=== PATIENT | male | born 1970 | race Caucasian/White ===

== ENCOUNTER 2020-01-19 12:32 | Inpatient (IN) | payer OTHER ==
[~2020-01-19] VITALS: Ht 177.8 cm; Wt 131.0 kg
[~2020-01-19 12:32] MED LIST: DOCU-150 PO; HYDR25SU18 RC; MULT-445 PO
[2020-01-19] MEDS ORDERED: IV NORMAL SALINE 1000ML BAG 1,000 ML IV ONE (16:00)
[2020-01-19] MEDS ORDERED: fentaNYL PF VIAL 100 MCG/2 ML VIAL IVP ONE (16:00)
[2020-01-19] MEDS ORDERED: ONDANSETRON PF 4 MG/2 ML VIAL. IVP ONE (16:00)
--- NOTE | 2020-01-19 16:04 | PHYS DOC ---
Past Medical History Past Medical History: No Pertinent History (FRANCIA ALBRIGHT FIRE ALARM MECHANIC) Past Surgical History: No Surgical History Additional Past Surgical Histo: L foot (FRANCIA ALBRIGHT FIRE ALARM MECHANIC) Smoking Status: Never Smoker Alcohol Use: Heavy Drug Use: None (FRANCIA ALBRIGHT FIRE ALARM MECHANIC) General Adult EDM: Chief Complaint: FEVER HPI: HPI: Patient is a 49 year old male who presents with patient stated he started in with symptoms this past Friday and was cover test on Friday. He states he found out on Friday that he was covered positive. He states that the first 2 days he had some nausea and vomiting but now he has no appetite, fever, body aches, shortness of breath with cough and chest pain with cough. He currently rates his overall pain at an 8 out of 10. He states he has been taking Tylenol and ibuprofen [id number] for pain and fever. He states that he has cold chills. He states that he cannot sleep because he is afraid if he falls asleep that he will stop breathing. Patient has a history of hypertension from denies any other history. He states he takes lisinopril. He states that when he coughs hard he coughs up white mucus. He is currently having no chest pain. Patient denies smoking, abdominal pain, diarrhea, dizziness, headache, vision changes, focal weakness, numbness or tingling, syncope. (FRANCIA ALBRIGHT FIRE ALARM MECHANIC) Review of Systems: Review of Systems: Constitutional: fever or chills. [] Eyes: Denies change in visual acuity. [] HENT: Denies nasal congestion or sore throat. [] Respiratory: cough or shortness of breath. [] Cardiovascular: chest pain or denies edema. [] GI: Denies abdominal pain. + nausea, +vomiting, denies bloody stools or diarrhea. [] : Denies dysuria. [] Musculoskeletal: Generalized body aches. denies back pain or joint pain. [] Integument: Denies rash. [] Neurologic: Denies headache, focal weakness or sensory changes. [] Endocrine: Denies polyuria or polydipsia. [] Lymphatic: Denies swollen glands. [] Psychiatric: Denies depression or anxiety. [] (FRANCIA ALBRIGHT FIRE ALARM MECHANIC) Heart Score: HEART Score for Chest Pain: HEART Score for Chest Pain Response (Comments) Value History Slighlty/Non-Suspicious 0 ECG Normal 0 Age >45 - < 65 1 Risk Factors 1 or 2 Risk Factors 1 Troponin < Normal Limit 0 Total 2 Risk Factors: Risk Factors: DM, Current or recent (<one month) smoker, HTN, HLP, family history of CAD, obesity. Risk Scores: Score 0 - 3: 2.5% MACE over next 6 weeks - Discharge Home Score 4 - 6: 20.3% MACE over next 6 weeks - Admit for Clinical Observation Score 7 - 10: 72.7% MACE over next 6 weeks - Early Invasive Strategies (FRANCIA ALBRIGHT APRN) Allergies: Allergies: Allergies Coded Allergies Type Severity Reaction Last Updated Verified No Known Drug Allergies 04/02/16 No (FRANCIA ALBRIGHT APRN) Physical Exam: PE: Constitutional: Well developed, well nourished, no acute distress, non-toxic appearance. [] HENT: Normocephalic, atraumatic, bilateral external ears normal, oropharynx moist, no oral exudates, nose normal. [] Eyes: PERRLA, EOMI, conjunctiva normal, no discharge. [] Neck: Normal range of motion, no tenderness, supple, no stridor. [] Cardiovascular:Heart rate regular rhythm, no murmur [] Lungs & Thorax: Bilateral breath sounds clear to auscultation [] Abdomen: Bowel sounds normal, soft, no tenderness, no masses, no pulsatile masses. [] Skin: Warm, dry, no erythema, no rash. [] Back: No tenderness, no CVA tenderness. [] Extremities: No tenderness, no cyanosis, no clubbing, ROM intact, no edema. [] Neurologic: Alert and oriented X 3, normal motor function, normal sensory function, no focal deficits noted. [] Psychologic: Affect normal, judgement normal, mood normal. Normal physical exam [] (FRANCIA ALBRIGHT APRN) EKG: EK read by Dr. Hutchinson is normal sinus rhythm and no STEMI [] (FRANCIA ALBRIGHT APRN) Radiology/Procedures: Radiology/Procedures: [] Impression: [facility] [address] [place] [address] IMAGING REPORT Signed PATIENT: ABDELRAHMAN TORREZ ACCOUNT: [id number] : 1970 LOCATION: ER AGE: 49 SEX: M EXAM STATUS: REG ER ORD. PHYSICIAN: FRANCIA ALBRIGHT APRN REASON: soa, +covid PROCEDURE: PORTABLE CHEST 1V Single view of the chest. 01/19/2020 3:48 PM Indication: Reason: soa, +covid / Spl. Instructions: / History: Comparison: None Findings: Lung volumes are low with mild bibasilar opacities possibly represent atelectasis or infiltrate. No pneumothorax or effusion is identified. Heart size is felt to be top normal given portable technique. No acute osseous changes are seen. IMPRESSION: Low lung volumes with mild bibasilar atelectasis or infiltrate Electronically signed by: Xavier Crow MD (01/19/2020 4:49 PM) [id number] DICTATED and SIGNED BY: XAVIER CROW MD DATE: 01/19/201648 (FRANCIA ALBRIGHT APRN) Course & Med Decision Making: Course & Med Decision Making Pertinent Labs and Imaging studies reviewed. (See chart for details) COVID-19 CRITERIA: The patient was evaluated during the global COVID-19 tammie [place], and that diagnosis was suspected/considered upon their initial presentation. Their evaluation, treatment and testing was consistent with current guidelines for patients who present with complaints or symptoms that may be related to COVID-19. See HPI. Extremity edema. Skin pink warm and dry. Ambulatory with a steady gait. Clear to auscultation all lobes. Speaks in full clear sentences. Currently afebrile. Patient is 92% on room air and there is a good waveform. Chest x-ray shows bibasilar infiltrates. Due to the patient's low oxygenation status patient will be admitted to the hospital. I have spoken to Dr. Garcia for admission. I will consult pulmonary and infectious disease. [] (FRANCIA ALBRIGHT APRN) Toribio Disclaimer: Toribio Disclaimer: This electronic medical record was generated, in whole or in part, using a voice recognition dictation system. (FRANCIA ALBRIGHT APRN) COVID-19 Patient Risks: Age 65 or older: No Sign of co-morbidity: Yes Exp to person + for COVID: Yes Exp to PUI: No Travel from affected area: No Lower respiratory symptoms: Yes Fever: Yes Comments: covid + (FRANCIA ALBRIGHT APRN) PPE Use: Full PPE with N95 mask or PAPR: Yes (FRANCIA ALBRIGHT APRN) Departure Departure Impression: Primary Impression: COVID-19 Additional Impression: Hypoxia Disposition: ADMITTED INPATIENT Admitting Physician: CATARINA (FRANCIA ALBRIGHT APRN) Condition: STABLE Referrals: UNKNOWN PCP NAME (PCP) Justicifation of Admission Dx: Justifications for Admission: Justification of Admission Dx: Yes Comments: hypoxia (FRANCIA ALBRIGHT APRN) Attending Signature Attending Signature I have reviewed the PA/REGISTRY NP's note and plan of care. I was available for consult ation as needed at all times during the patient's visit in the emergency department. I agree with the clinical impression, plan and disposition. (ABDELRAHMAN HUTCHINSON DO) FRANCIA ALBRIGHT APRN Jan 19, 2020 16:04 ABDELRAHMAN HUTCHINSON DO Jan 21, 2020 09:23
--- NOTE | 2020-01-19 16:20 | EKG ---
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
[2020-01-19 16:40] LABS: BASO % 0 % (0-3); EOS % 0 % (0-3); HEMATOCRIT 41.4 % (39.0-53.0); HEMOGLOBIN 14.7 g/dL (13.0-17.5); LYMPH # 0.7 x10^3/uL (1.0-4.8); LYMPH % 15 % (24-48); MEAN CORPUSCULAR HEMOGLOBIN 33 pg (25-35); MEAN CORPUSCULAR HGB CONC 35 g/dL (31-37); MEAN CORPUSCULAR VOLUME 92 fL (79-100); MONO # 0.2 x10^3/uL (0.0-1.1); MONO % 4 % (0-9); NEUT # 3.8 x10^3/uL (1.8-7.7); NEUT % 81 % (31-73); PLATELET COUNT 187 x10^3/uL (140-400); RED CELL DISTRIBUTION WIDTH 13.4 % (11.5-14.5); WHITE BLOOD COUNT 4.8 x10^3/uL (4.0-11.0)
[2020-01-19] MEDS ORDERED: ACETAMINOPHEN 500 MG TABLET PO ONE (16:45)
[2020-01-19 16:50] LABS: CALCIUM 8.3 mg/dL (8.5-10.1); CREATININE 1.3 mg/dL (0.7-1.3); GFR 58.4; POTASSIUM 3.8 mmol/L (3.5-5.1)
--- NOTE | 2020-01-19 16:52 | RAD ---
Single view of the chest. 01/19/2020 3:48 PM Indication: Reason: soa, +covid / Spl. Instructions: / History: Comparison: None Findings: Lung volumes are low with mild bibasilar opacities possibly represent atelectasis or infiltrate. No pneumothorax or effusion is identified. Heart size is felt to be top normal given portable technique. No acute osseous changes are seen. IMPRESSION: Low lung volumes with mild bibasilar atelectasis or infiltrate Electronically signed by: Xavier Darling MD (01/19/2020 4:49 PM) [id number]
[2020-01-19 16:56] LABS: ALBUMIN 3.3 g/dL (3.4-5.0); ALBUMIN/GLOBULIN RATIO 0.8 (1.0-1.7); TOTAL BILIRUBIN 0.4 mg/dL (0.2-1.0); TOTAL PROTEIN 7.5 g/dL (6.4-8.2)
[2020-01-19 17:11] LABS: BILIRUBIN,URINE SMALL (NEG); CLARITY,URINE CLEAR; COLOR,URINE YELLOW; NITRITE,URINE NEGATIVE (NEG); PH,URINE 5.5 (<5.0-8.0); PROTEIN,URINE 100 mg/dL (NEG-TRACE); UROBILINOGEN,URINE 0.2 mg/dL (0.2 mg/dL)
[2020-01-19 17:27] LABS: GRANULAR CASTS,URINE MODERATE /HPF; HYALINE CASTS, URINE MODERATE /HPF
[2020-01-19 17:28] LABS: BACTERIA,URINE 0 /HPF (0-FEW)
[2020-01-19 17:29] LABS: RBC,URINE RARE /HPF (0-2)
[2020-01-19] MEDS ORDERED: DEXAMETHASONE SOD PHOS 20 MG/5 ML VIAL. IV ONE (18:00)
[2020-01-19] MEDS ORDERED: AZITHRMYCN 500MG IVPB FOR OMNI 250 ML IV ONE (18:00)
[2020-01-19] MEDS ORDERED: fentaNYL PF VIAL 100 MCG/2 ML VIAL IV PRN (18:15)
[2020-01-19] MEDS ORDERED: ONDANSETRON PF 4 MG/2 ML VIAL. IV PRN (18:15)
[2020-01-19 19:07] LABS: BASE EXCESS COOX -1 mmol/L (-3-3); HCO3 COOX 22 mmol/L (21-28); METHEMOGLOBIN 0.4 % (0.0-1.9); OXYHEMOGLOBIN 92.8 %; PCO2 COOX 32 mmHg (35-46); PO2 COOX 65 mmHg (75-108); SAT O2 COOX 93 % (92-99)
[2020-01-19 21:13] VITALS: BP 123/69
[2020-01-19] MEDS: ACETAMINOPHEN 325 MG TABLET. PO PRN (22:53)
[2020-01-20] VITALS (9 sets, daily range): BP systolic 115–186; BP diastolic 62–81
[2020-01-20] MEDS ORDERED: LISI10TA2 PO (00:44)
--- NOTE | 2020-01-20 08:45 | PDOC1 ---
History and Physical Date of Service: DOS: DATE: 01/20/20 TIME: 08:35 Chief Complaint: Chief Complain: Dyspnea History of Present Illness: HPI: 80-[id number]-wmcc-old male with past medical history of hypertension who presents with combination of loss of appetite, nausea vomiting, fever, malaise, shortness of breath and chest pain. Overall pain is 8 out of 10. Symptoms began this past Friday and he had a COVID test on Friday and on Friday he was found out that he was COVID positive. Patient states that he was unable to fall asleep because he was afraid he would stop breathing. This is what prompted him to come to the ED at the time. Denies abdominal pain, diarrhea, dysuria, syncope, hematemesis or smoking. Past Medical/Surgical History: PMH/PSH: Past Medical History: Hypertension Past Surgical History: L foot Allergies: Allergies: Coded Allergies: No Known Drug Allergies (Unverified , 04/02/16) Family History: Family History: Reviewed and none reported Social History: Social History: Smoking Status: Never Smoker Alcohol Use: Heavy Drug Use: None Current Medications: Current Medications Current Medications Sodium Chloride 1,000 ml @ 1,000 mls/hr 1X ONCE IV Last administered on 01/19/20at 16:23; Start 01/19/20 at 16:00; Stop 01/19/20 at 16:59; Status DC Fentanyl Citrate (Fentanyl 2ml Vial) 50 mcg 1X ONCE IVP Last administered on 01/19/20at 16:23; Start 01/19/20 at 16:00; Stop 01/19/20 at 16:01; Status DC Ondansetron HCl (Zofran) 4 mg 1X ONCE IVP Last administered on 01/19/20at 16:23; Start 01/19/20 at 16:00; Stop 01/19/20 at 16:01; Status DC Acetaminophen (Tylenol) 1,000 mg 1X ONCE PO Last administered on 01/19/20at 16:47; Start 01/19/20 at 16:45; Stop 01/19/20 at 16:46; Status DC Azithromycin 250 ml @ 250 mls/hr 1X ONCE IV Last administered on 01/19/20at 18:58; Start 01/19/20 at 18:00; Stop 01/19/20 at 18:59; Status DC Dexamethasone Sodium Phosphate (Decadron) 10 mg 1X ONCE IV Last administered on 01/19/20at 18:59; Start 01/19/20 at 18:00; Stop 01/19/20 at 18:01; Status DC Ondansetron HCl (Zofran) 4 mg PRN Q8HRS PRN IV NAUSEA/VOMITING; Start 01/19/20 at 18:15; Stop 01/20/20 at 18:14 Fentanyl Citrate (Fentanyl 2ml Vial) 50 mcg PRN Q1HR PRN IV PAIN; Start 01/19/20 at 18:15; Stop 01/20/20 at 18:14 Acetaminophen (Tylenol) 650 mg PRN Q4HRS PRN PO FEVER > 100.3'F Last administered on 01/19/20at 22:53; Start 01/19/20 at 18:15; Stop 01/20/20 at 18:14 Active Scripts Active Reported Lisinopril 10 Mg Tablet 1 Tab PO DAILY ROS: Review of Systems Review of System REVIEW OF SYSTEMS: GENERAL: Denies weakness SKIN: No bruising, hair changes or rashes. EYES: No blurred, double or loss of vision. NOSE AND THROAT: No history of nosebleeds, hoarseness or sore throat. HEART: No history of palpitations, chest pain or shortness of breath on exertion. LUNGS: Denies cough, hemoptysis, wheezing or shortness of breath. GASTROINTESTINAL: Denies changes in appetite, nausea, vomiting, diarrhea or constipation. GENITOURINARY: No history of frequency, urgency, hesitancy or nocturia. NEUROLOGIC: Denies history of numbness, tingling, or tremor. PSYCHIATRIC: No history of panic, anxiety or depression. ENDOCRINE: No history of heat or cold intolerance, polyuria or polydipsia. EXTREMITIES: Denies joint pain, pain on walking or stiffness. Physical Exam: Vital Signs: Vital Signs Date Time Temp Pulse Resp B/P (MAP) Pulse Ox O2 Delivery O2 Flow Rate FiO2 01/20/20 03:24 98.5 57 16 115/62 (79) 94 Nasal Cannula 2.0 98.5 Physcial Exam: GEN: No apparent distress. Alert and oriented HEENT: Normal cephalic, atraumatic, external auditory canals are patent EYES: Extraocular muscles are intact, pupil are equally round and reactive to light and accommodation MUSCULOSKELETAL: Well developed , well nourished, good range of motion ENDOCRINE: No thyromegaly was palpated LYMPHATICS: No cervical chain or axillary nodes were noted HEMATOPOIETIC: No bruising NECK: Supple, no JVD, no thyromegaly was noted LUNGS: Clear to auscultation in all lung kumar without rhonchi or wheezing HEART: RRR, S!, S2 present. Peripheral pulses intact, no obvious murmurs noted ABDOMEN: Soft, nontender. Positive bowel sounds, no organomegaly, normal bowel sounds EXTREMITIES: Without clubbing, cyanosis, or edema. Pedal pulses intact. Negative Homans sign NEUROLOGIC: Normal speech and tone. A&O x 3, moves all extremities, no obvious focal deficits PSYCHIATRIC: Normal affect, normal mood. Stable SKIN: No ulcerations or rashes, good skin turgor, no jaundice VASCULAR: Good capillary refill, neurovascular bundle appears to be intact Labs: Labs: Laboratory Tests Test 01/19/20 15:48 01/19/20 15:58 01/19/20 16:22 01/19/20 16:27 Sodium Level 134 mmol/L (136-145) Potassium Level 3.8 mmol/L (3.5-5.1) Chloride Level 96 mmol/L (98-107) Carbon Dioxide Level 28 mmol/L (21-32) Anion Gap 10 (6-14) Blood Urea Nitrogen 17 mg/dL (8-26) Creatinine 1.3 mg/dL (0.7-1.3) Estimated GFR (Cockcroft-Gault) 58.4 BUN/Creatinine Ratio 13 (6-20) Glucose Level 107 mg/dL (70-99) Calcium Level 8.3 mg/dL (8.5-10.1) Total Bilirubin 0.4 mg/dL (0.2-1.0) Aspartate Amino Transf (AST/SGOT) 36 U/L (15-37) Alanine Aminotransferase (ALT/SGPT) 30 U/L (16-63) Alkaline Phosphatase 59 U/L (46-116) Troponin I Quantitative < 0.017 ng/mL (0.000-0.055) Total Protein 7.5 g/dL (6.4-8.2) Albumin 3.3 g/dL (3.4-5.0) Albumin/Globulin Ratio 0.8 (1.0-1.7) XR-Fde-J-Type Natriuretic Peptide 50 pg/mL (0-124) Lactic Acid Level 1.0 mmol/L (0.4-2.0) White Blood Count 4.8 x10^3/uL (4.0-11.0) Red Blood Count 4.50 x10^6/uL (4.30-5.70) Hemoglobin 14.7 g/dL (13.0-17.5) Hematocrit 41.4 % (39.0-53.0) Mean Corpuscular Volume 92 fL (79-100) Mean Corpuscular Hemoglobin 33 pg (25-35) Mean Corpuscular Hemoglobin Concent 35 g/dL (31-37) Red Cell Distribution Width 13.4 % (11.5-14.5) Platelet Count 187 x10^3/uL (140-400) Neutrophils (%) (Auto) 81 % (31-73) Lymphocytes (%) (Auto) 15 % (24-48) Monocytes (%) (Auto) 4 % (0-9) Eosinophils (%) (Auto) 0 % (0-3) Basophils (%) (Auto) 0 % (0-3) Neutrophils # (Auto) 3.8 x10^3/uL (1.8-7.7) Lymphocytes # (Auto) 0.7 x10^3/uL (1.0-4.8) Monocytes # (Auto) 0.2 x10^3/uL (0.0-1.1) Eosinophils # (Auto) 0.0 x10^3/uL (0.0-0.7) Basophils # (Auto) 0.0 x10^3/uL (0.0-0.2) Test 01/19/20 17:00 01/19/20 17:30 Urine Collection Type Unknown Urine Color Yellow Urine Clarity Clear Urine pH 5.5 (<5.0-8.0) Urine Specific [place] 1.020 (1.000-1.030) Urine Protein 100 mg/dL (NEG-TRACE) Urine Glucose (UA) Negative mg/dL (NEG) Urine Ketones (Stick) Trace mg/dL (NEG) Urine Blood Negative (NEG) Urine Nitrite Negative (NEG) Urine Bilirubin Small (NEG) Urine Urobilinogen Dipstick 0.2 mg/dL (0.2 mg/dL) Urine Leukocyte Esterase Negative (NEG) Urine RBC Rare /HPF (0-2) Urine WBC 11-20 /HPF (0-4) Urine Squamous Epithelial Cells None /LPF Urine Bacteria 0 /HPF (0-FEW) Urine Cellular Casts Mod /HPF Urine Hyaline Casts Moderate /HPF Urine Granular Casts Moderate /HPF Urine Mucus Marked /LPF O2 Saturation 93 % (92-99) Arterial Blood pH 7.46 (7.35-7.45) Arterial Blood pCO2 at Patient Temp 32 mmHg (35-46) Arterial Blood pO2 at Patient Temp 65 mmHg (75-108) Arterial Blood HCO3 22 mmol/L (21-28) Arterial Blood Base Excess -1 mmol/L (-3-3) Oxyhemoglobin 92.8 % Methemoglobin 0.4 % (0.0-1.9) Carbon Monoxide, Quantitative 0.2 % (0.0-1.9) FiO2 21 Laboratory Tests Test 01/19/20 15:48 01/19/20 15:58 01/19/20 16:22 01/19/20 16:27 Sodium Level 134 mmol/L (136-145) Potassium Level 3.8 mmol/L (3.5-5.1) Chloride Level 96 mmol/L (98-107) Carbon Dioxide Level 28 mmol/L (21-32) Anion Gap 10 (6-14) Blood Urea Nitrogen 17 mg/dL (8-26) Creatinine 1.3 mg/dL (0.7-1.3) Estimated GFR (Cockcroft-Gault) 58.4 BUN/Creatinine Ratio 13 (6-20) Glucose Level 107 mg/dL (70-99) Calcium Level 8.3 mg/dL (8.5-10.1) Total Bilirubin 0.4 mg/dL (0.2-1.0) Aspartate Amino Transf (AST/SGOT) 36 U/L (15-37) Alanine Aminotransferase (ALT/SGPT) 30 U/L (16-63) Alkaline Phosphatase 59 U/L (46-116) Troponin I Quantitative < 0.017 ng/mL (0.000-0.055) Total Protein 7.5 g/dL (6.4-8.2) Albumin 3.3 g/dL (3.4-5.0) Albumin/Globulin Ratio 0.8 (1.0-1.7) HC-Wch-L-Type Natriuretic Peptide 50 pg/mL (0-124) Lactic Acid Level 1.0 mmol/L (0.4-2.0) White Blood Count 4.8 x10^3/uL (4.0-11.0) Red Blood Count 4.50 x10^6/uL (4.30-5.70) Hemoglobin 14.7 g/dL (13.0-17.5) Hematocrit 41.4 % (39.0-53.0) Mean Corpuscular Volume 92 fL (79-100) Mean Corpuscular Hemoglobin 33 pg (25-35) Mean Corpuscular Hemoglobin Concent 35 g/dL (31-37) Red Cell Distribution Width 13.4 % (11.5-14.5) Platelet Count 187 x10^3/uL (140-400) Neutrophils (%) (Auto) 81 % (31-73) Lymphocytes (%) (Auto) 15 % (24-48) Monocytes (%) (Auto) 4 % (0-9) Eosinophils (%) (Auto) 0 % (0-3) Basophils (%) (Auto) 0 % (0-3) Neutrophils # (Auto) 3.8 x10^3/uL (1.8-7.7) Lymphocytes # (Auto) 0.7 x10^3/uL (1.0-4.8) Monocytes # (Auto) 0.2 x10^3/uL (0.0-1.1) Eosinophils # (Auto) 0.0 x10^3/uL (0.0-0.7) Basophils # (Auto) 0.0 x10^3/uL (0.0-0.2) Test 01/19/20 17:00 01/19/20 17:30 Urine Collection Type Unknown Urine Color Yellow Urine Clarity Clear Urine pH 5.5 (<5.0-8.0) Urine Specific [place] 1.020 (1.000-1.030) Urine Protein 100 mg/dL (NEG-TRACE) Urine Glucose (UA) Negative mg/dL (NEG) Urine Ketones (Stick) Trace mg/dL (NEG) Urine Blood Negative (NEG) Urine Nitrite Negative (NEG) Urine Bilirubin Small (NEG) Urine Urobilinogen Dipstick 0.2 mg/dL (0.2 mg/dL) Urine Leukocyte Esterase Negative (NEG) Urine RBC Rare /HPF (0-2) Urine WBC 11-20 /HPF (0-4) Urine Squamous Epithelial Cells None /LPF Urine Bacteria 0 /HPF (0-FEW) Urine Cellular Casts Mod /HPF Urine Hyaline Casts Moderate /HPF Urine Granular Casts Moderate /HPF Urine Mucus Marked /LPF O2 Saturation 93 % (92-99) Arterial Blood pH 7.46 (7.35-7.45) Arterial Blood pCO2 at Patient Temp 32 mmHg (35-46) Arterial Blood pO2 at Patient Temp 65 mmHg (75-108) Arterial Blood HCO3 22 mmol/L (21-28) Arterial Blood Base Excess -1 mmol/L (-3-3) Oxyhemoglobin 92.8 % Methemoglobin 0.4 % (0.0-1.9) Carbon Monoxide, Quantitative 0.2 % (0.0-1.9) FiO2 21 Images: Images CXR IMPRESSION: Low lung volumes with mild bibasilar atelectasis or infiltrate Assessment/Plan Assessment/Plan Acute hypoxic respiratory failure due to COVID infection Admit to medicine Appreciate pulmonology recommendations Appreciate infectious disease recommendations Start IV steroids Start convalescent plasma and Remdesivir Continue current oxygen supplementation to maintain saturations greater than 92% Start high dose DVT treatment High dose Lovenox for DVT prophylaxis ADA diet Full code Discussed with RN and SW Disposition inpatient Surrogate decision maker is self LIZETH MART MD Jan 20, 2020 08:45
[2020-01-20] MEDS: ASCORBIC ACID 500 MG TABLET PO SCH ×3 (09:03→23:08)
--- NOTE | 2020-01-20 09:55 | PDOC ---
Infectious Disease Note Vital Sign Vital Signs Vital Signs Date Time Temp Pulse Resp B/P (MAP) Pulse Ox O2 Delivery O2 Flow Rate FiO2 01/20/20 03:24 98.5 57 16 115/62 (79) 94 Nasal Cannula 2.0 98.5 Labs Lab Laboratory Tests Test 01/19/20 15:48 01/19/20 15:58 01/19/20 16:22 01/19/20 16:27 Sodium Level 134 mmol/L (136-145) Potassium Level 3.8 mmol/L (3.5-5.1) Chloride Level 96 mmol/L (98-107) Carbon Dioxide Level 28 mmol/L (21-32) Anion Gap 10 (6-14) Blood Urea Nitrogen 17 mg/dL (8-26) Creatinine 1.3 mg/dL (0.7-1.3) Estimated GFR (Cockcroft-Gault) 58.4 BUN/Creatinine Ratio 13 (6-20) Glucose Level 107 mg/dL (70-99) Calcium Level 8.3 mg/dL (8.5-10.1) Total Bilirubin 0.4 mg/dL (0.2-1.0) Aspartate Amino Transf (AST/SGOT) 36 U/L (15-37) Alanine Aminotransferase (ALT/SGPT) 30 U/L (16-63) Alkaline Phosphatase 59 U/L (46-116) Troponin I Quantitative < 0.017 ng/mL (0.000-0.055) Total Protein 7.5 g/dL (6.4-8.2) Albumin 3.3 g/dL (3.4-5.0) Albumin/Globulin Ratio 0.8 (1.0-1.7) FN-Stj-D-Type Natriuretic Peptide 50 pg/mL (0-124) Lactic Acid Level 1.0 mmol/L (0.4-2.0) White Blood Count 4.8 x10^3/uL (4.0-11.0) Red Blood Count 4.50 x10^6/uL (4.30-5.70) Hemoglobin 14.7 g/dL (13.0-17.5) Hematocrit 41.4 % (39.0-53.0) Mean Corpuscular Volume 92 fL (79-100) Mean Corpuscular Hemoglobin 33 pg (25-35) Mean Corpuscular Hemoglobin Concent 35 g/dL (31-37) Red Cell Distribution Width 13.4 % (11.5-14.5) Platelet Count 187 x10^3/uL (140-400) Neutrophils (%) (Auto) 81 % (31-73) Lymphocytes (%) (Auto) 15 % (24-48) Monocytes (%) (Auto) 4 % (0-9) Eosinophils (%) (Auto) 0 % (0-3) Basophils (%) (Auto) 0 % (0-3) Neutrophils # (Auto) 3.8 x10^3/uL (1.8-7.7) Lymphocytes # (Auto) 0.7 x10^3/uL (1.0-4.8) Monocytes # (Auto) 0.2 x10^3/uL (0.0-1.1) Eosinophils # (Auto) 0.0 x10^3/uL (0.0-0.7) Basophils # (Auto) 0.0 x10^3/uL (0.0-0.2) Test 01/19/20 17:00 01/19/20 17:30 Urine Collection Type Unknown Urine Color Yellow Urine Clarity Clear Urine pH 5.5 (<5.0-8.0) Urine Specific [place] 1.020 (1.000-1.030) Urine Protein 100 mg/dL (NEG-TRACE) Urine Glucose (UA) Negative mg/dL (NEG) Urine Ketones (Stick) Trace mg/dL (NEG) Urine Blood Negative (NEG) Urine Nitrite Negative (NEG) Urine Bilirubin Small (NEG) Urine Urobilinogen Dipstick 0.2 mg/dL (0.2 mg/dL) Urine Leukocyte Esterase Negative (NEG) Urine RBC Rare /HPF (0-2) Urine WBC 11-20 /HPF (0-4) Urine Squamous Epithelial Cells None /LPF Urine Bacteria 0 /HPF (0-FEW) Urine Cellular Casts Mod /HPF Urine Hyaline Casts Moderate /HPF Urine Granular Casts Moderate /HPF Urine Mucus Marked /LPF O2 Saturation 93 % (92-99) Arterial Blood pH 7.46 (7.35-7.45) Arterial Blood pCO2 at Patient Temp 32 mmHg (35-46) Arterial Blood pO2 at Patient Temp 65 mmHg (75-108) Arterial Blood HCO3 22 mmol/L (21-28) Arterial Blood Base Excess -1 mmol/L (-3-3) Oxyhemoglobin 92.8 % Methemoglobin 0.4 % (0.0-1.9) Carbon Monoxide, Quantitative 0.2 % (0.0-1.9) FiO2 21 Objective Assessment pt seen, consult dictated Plan Plan of Care / GERMAN CHOWDARY MD Jan 20, 2020 09:55
[2020-01-20] MEDS: LISINOPRIL 10 MG TABLET PO SCH (10:07)
[2020-01-20] MEDS: LABETALOL 20 MG/4 ML DISP.SYRIN. IVP PRN (10:08)
[2020-01-20] MEDS: ACETAMINOPHEN 325 MG TABLET. PO PRN ×2 (10:09→17:40)
--- NOTE | 2020-01-20 11:16 | CONS ---
DATE OF CONSULTATION: 01/20/2020 REQUESTING PHYSICIAN: Dr. Araya. REASON FOR CONSULTATION: Hypoxia and COVID positive and fever. HISTORY OF PRESENT ILLNESS: This is a 49-year-old gentleman with history of hypertension, who came in. In fact, he had an outpatient urgent care on . He had a COVID test done, which was positive. The patient started having more shortness of breath and more fever, hence he came in. The patient denies any nausea, vomiting, diarrhea. Denies any chest pain. He does have shortness of breath and fever. PAST MEDICAL HISTORY: Positive for hypertension. SOCIAL HISTORY: Negative for smoking, but he does use alcohol, no drug use. ALLERGIES: No known drug allergies. CURRENT MEDICATIONS: The patient is already started on steroids. He received azithromycin one dose. REVIEW OF SYSTEMS: As per HPI, all other systems reviewed are negative. PHYSICAL EXAMINATION: GENERAL: Alert, oriented gentleman, not in distress. VITAL SIGNS: Stable with T-max 102.8. HEENT: NAD. NECK: Supple, no JVP, no lymphadenopathy. LUNGS: Clear. HEART: S1, S2 regular. ABDOMEN: Benign. EXTREMITIES: No edema, cyanosis. SKIN: Unremarkable. NEUROLOGIC: The patient is alert, awake and appropriate. No focal neurologic deficit. LABORATORY DATA: White count is normal. Low lymphocyte count. BUN and creatinine are normal. Lactic acid was normal. Urinalysis unremarkable. His chest x-ray showed bibasilar infiltrate. IMPRESSION: 1. COVID-19 positive. 2. Hypoxemia, the patient is on 2 liters oxygen. 3. Pulmonary infiltrate. 4. Fever. 5. Hypertension. RECOMMENDATIONS: Continue steroids. I did discuss with him about the convalescent plasma and remdesivir. The patient is in agreement. We will initiate that and continue to follow. Thank you very much, Dr. Araya, for giving me the opportunity to participate in this patient's care. GERMAN CHOWDARY MD DR: RUBY/bjorn JOB#: [id number] / [id number]
--- NOTE | 2020-01-20 11:57 | CONS ---
DATE OF CONSULTATION: PULMONARY CONSULTATION ATTENDING PHYSICIAN: Jose Araya MD REASON FOR CONSULTATION: Hypoxia, COVID pneumonia. HISTORY OF PRESENT ILLNESS: The patient is a 49-year-old male who is obese with a BMI of 41. He has no history of tobacco use. He was recently tested positive COVID. He started to have some shortness of breath. As a result, he has been in the hospital. He has a cough. No chest pain, but he does have a fever. No nausea, vomiting, no diarrhea. His chest x-ray showed faint patchy interstitial infiltrates. PAST MEDICAL HISTORY: Significant for hypertension and obesity with a BMI of 41. SOCIAL HISTORY: Negative for smoking. PAST SURGICAL HISTORY: None. ALLERGIES: None. MEDICATIONS: Reviewed as listed on MRAD. REVIEW OF SYSTEMS: Ten-point system obtained. Pertinent positives discussed in my history of present illness, otherwise noncontributory. All systems that were negative were reviewed as well. PHYSICAL EXAMINATION: VITAL SIGNS: Reviewed. T-max of 101.4, blood pressure on the high side, pulse ox 90% on 2 liters. GENERAL: Visual exam done due to COVID-19 pandemia. No obvious respiratory distress. He is obese. EXTREMITIES: With no rash. LABORATORY DATA: Reviewed. White cell count 4.8, hemoglobin 14.7, platelets are 187. BUN and creatinine 17 and 1.3. ABGs: pH 7.46, pCO2 of 32 and a pO2 of 65 on room air. IMPRESSION: 1. Acute hypoxic respiratory failure secondary to COVID-19 pneumonia. 2. Abnormal chest x-ray with patchy infiltrates consistent with COVID pneumonia. 3. Underlying morbid obesity. 4. No significant tobacco history. RECOMMENDATIONS: 1. Continue present oxygen. Keep saturation 92% and above. 2. IV steroids. 3. We will initiate plasma as well as remdesivir per Infectious Disease. 4. Monitor the clinical course of treatment. 5. High dose DVT prophylaxis. Discussed with RN. CHINTAN MCGRATH MD DR: RAVIND/bjorn JOB#: [id number] / [id number]
[2020-01-20] MEDS ORDERED: NON FORMULARY ITEM 1 EA in IV NORMAL SALINE 250ML 250 ML IV ONE (13:00)
[2020-01-20] MEDS: ENOXAPARIN 40 MG/0.4 ML SYRINGE. SQ SCH ×2 (13:21→23:09)
[2020-01-20] MEDS: THIAMINE INJ 100 MG in IV DEXTROSE 5% 50 ML IV SCH ×2 (15:06→23:11)
[2020-01-20] MEDS: methylPREDNISolone SOD SUCC PF 40 MG/ML VIAL. IV SCH ×2 (15:06→23:08)
--- NOTE | 2020-01-20 17:15 | NUR ---
SW following. Spoke with RN and reviewed chart. Pt on 2l 02. Pt COVID positive. SW attempted to call into pt's room to coordinate care, no answer. SW to continue following.
[2020-01-21 03:36] VITALS: BP 128/72
[2020-01-21] MEDS ORDERED: PHENOL ORAL SPRAY 177ML BOTTLE. PO PRN (05:30)
[2020-01-21] MEDS ORDERED: BENZONATATE 100 MG CAPSULE. PO PRN (05:30)
[2020-01-21] MEDS: BENZOCAINE/MENTHOL LOZENGE. PO PRN ×2 (05:39→08:26)
[2020-01-21] MEDS: THIAMINE INJ 100 MG in IV DEXTROSE 5% 50 ML IV SCH ×3 (05:39→21:48)
[2020-01-21] MEDS: methylPREDNISolone SOD SUCC PF 40 MG/ML VIAL. IV SCH ×3 (05:39→21:47)
[2020-01-21 07:00] VITALS: BP 154/73
[2020-01-21] MEDS: ASCORBIC ACID 500 MG TABLET PO SCH ×3 (08:26→21:47)
[2020-01-21] MEDS: LISINOPRIL 10 MG TABLET PO SCH (08:27)
[2020-01-21] MEDS: ENOXAPARIN 40 MG/0.4 ML SYRINGE. SQ SCH ×2 (08:27→21:48)
[2020-01-21] MEDS: NON FORMULARY ITEM 1 EA in IV NORMAL SALINE 250ML 250 ML IV SCH (08:50)
--- NOTE | 2020-01-21 09:02 | PDOC ---
PULMONARY PROGRESS NOTES DATE: 01/21/20 TIME: 09:02 Subjective PT. resting on 2 liters N/C Repost SOB at rest and with ambulation and non-productive cough Low grade fever overnight S/P convalescent plasma and remdesivir 01/20/20 Vitals Vital Signs Date Time Temp Pulse Resp B/P (MAP) Pulse Ox O2 Delivery O2 Flow Rate FiO2 01/21/20 08:27 77 154/73 01/21/20 07:00 99.3 18 99 Nasal Cannula 2.0 99.3 Comments PT. seen during covid-19 pandemic visual exam preformed RRR N/C No distress No edema No rash Labs Laboratory Tests Test 01/19/20 15:48 01/19/20 15:58 01/19/20 16:22 01/19/20 16:27 Sodium Level 134 mmol/L (136-145) Potassium Level 3.8 mmol/L (3.5-5.1) Chloride Level 96 mmol/L (98-107) Carbon Dioxide Level 28 mmol/L (21-32) Anion Gap 10 (6-14) Blood Urea Nitrogen 17 mg/dL (8-26) Creatinine 1.3 mg/dL (0.7-1.3) Estimated GFR (Cockcroft-Gault) 58.4 BUN/Creatinine Ratio 13 (6-20) Glucose Level 107 mg/dL (70-99) Calcium Level 8.3 mg/dL (8.5-10.1) Total Bilirubin 0.4 mg/dL (0.2-1.0) Aspartate Amino Transf (AST/SGOT) 36 U/L (15-37) Alanine Aminotransferase (ALT/SGPT) 30 U/L (16-63) Alkaline Phosphatase 59 U/L (46-116) Troponin I Quantitative < 0.017 ng/mL (0.000-0.055) Total Protein 7.5 g/dL (6.4-8.2) Albumin 3.3 g/dL (3.4-5.0) Albumin/Globulin Ratio 0.8 (1.0-1.7) TR-Saz-R-Type Natriuretic Peptide 50 pg/mL (0-124) Lactic Acid Level 1.0 mmol/L (0.4-2.0) White Blood Count 4.8 x10^3/uL (4.0-11.0) Red Blood Count 4.50 x10^6/uL (4.30-5.70) Hemoglobin 14.7 g/dL (13.0-17.5) Hematocrit 41.4 % (39.0-53.0) Mean Corpuscular Volume 92 fL (79-100) Mean Corpuscular Hemoglobin 33 pg (25-35) Mean Corpuscular Hemoglobin Concent 35 g/dL (31-37) Red Cell Distribution Width 13.4 % (11.5-14.5) Platelet Count 187 x10^3/uL (140-400) Neutrophils (%) (Auto) 81 % (31-73) Lymphocytes (%) (Auto) 15 % (24-48) Monocytes (%) (Auto) 4 % (0-9) Eosinophils (%) (Auto) 0 % (0-3) Basophils (%) (Auto) 0 % (0-3) Neutrophils # (Auto) 3.8 x10^3/uL (1.8-7.7) Lymphocytes # (Auto) 0.7 x10^3/uL (1.0-4.8) Monocytes # (Auto) 0.2 x10^3/uL (0.0-1.1) Eosinophils # (Auto) 0.0 x10^3/uL (0.0-0.7) Basophils # (Auto) 0.0 x10^3/uL (0.0-0.2) Test 01/19/20 17:00 01/19/20 17:30 Urine Collection Type Unknown Urine Color Yellow Urine Clarity Clear Urine pH 5.5 (<5.0-8.0) Urine Specific [place] 1.020 (1.000-1.030) Urine Protein 100 mg/dL (NEG-TRACE) Urine Glucose (UA) Negative mg/dL (NEG) Urine Ketones (Stick) Trace mg/dL (NEG) Urine Blood Negative (NEG) Urine Nitrite Negative (NEG) Urine Bilirubin Small (NEG) Urine Urobilinogen Dipstick 0.2 mg/dL (0.2 mg/dL) Urine Leukocyte Esterase Negative (NEG) Urine RBC Rare /HPF (0-2) Urine WBC 11-20 /HPF (0-4) Urine Squamous Epithelial Cells None /LPF Urine Bacteria 0 /HPF (0-FEW) Urine Cellular Casts Mod /HPF Urine Hyaline Casts Moderate /HPF Urine Granular Casts Moderate /HPF Urine Mucus Marked /LPF O2 Saturation 93 % (92-99) Arterial Blood pH 7.46 (7.35-7.45) Arterial Blood pCO2 at Patient Temp 32 mmHg (35-46) Arterial Blood pO2 at Patient Temp 65 mmHg (75-108) Arterial Blood HCO3 22 mmol/L (21-28) Arterial Blood Base Excess -1 mmol/L (-3-3) Oxyhemoglobin 92.8 % Methemoglobin 0.4 % (0.0-1.9) Carbon Monoxide, Quantitative 0.2 % (0.0-1.9) FiO2 21 Medications Active Scripts Medications Dose Route/Sig Max Daily Dose Days Date Category Lisinopril 10 Mg Tablet 1 Tab PO DAILY 01/20/20 Reported Comments CXR IMPRESSION: Low lung volumes with mild bibasilar atelectasis or infiltrate Impression . IMPRESSION: 1. Acute hypoxic respiratory failure secondary to COVID-19 pneumonia. 2. Abnormal chest x-ray with patchy infiltrates consistent with COVID pneumonia. 3. Underlying morbid obesity. 4. No significant tobacco history. Plan . RECOMMENDATIONS: 1. Continue present oxygen. Keep saturation 92% and above. 2. Continue IV steroids, will need ten day course 3. ABX per ID 4. S/P convalescent plasma and remdesivir 01/20/20 5. High dose DVT prophylaxis. 6. Tylenol for fevers 7. Monitor clinical course D/W HUMBERTO OAKES MD Jan 21, 2020 09:02
[2020-01-21] MEDS ORDERED: ACETAMINOPHEN 325 MG TABLET. PO PRN (10:00)
[2020-01-21 10:16] LABS: BASO % 0 % (0-3); EOS % 0 % (0-3); HEMATOCRIT 39.1 % (39.0-53.0); HEMOGLOBIN 13.7 g/dL (13.0-17.5); LYMPH # 0.7 x10^3/uL (1.0-4.8); LYMPH % 12 % (24-48); MEAN CORPUSCULAR HEMOGLOBIN 32 pg (25-35); MEAN CORPUSCULAR HGB CONC 35 g/dL (31-37); MEAN CORPUSCULAR VOLUME 92 fL (79-100); MONO # 0.2 x10^3/uL (0.0-1.1); MONO % 4 % (0-9); NEUT # 5.2 x10^3/uL (1.8-7.7); NEUT % 84 % (31-73); PLATELET COUNT 278 x10^3/uL (140-400); RED BLOOD COUNT 4.26 x10^6/uL (4.30-5.70); RED CELL DISTRIBUTION WIDTH 13.9 % (11.5-14.5); WHITE BLOOD COUNT 6.2 x10^3/uL (4.0-11.0)
[2020-01-21 10:27] LABS: CALCIUM 8.1 mg/dL (8.5-10.1); GFR 79.1
[2020-01-21 10:40] LABS: POTASSIUM 3.8 mmol/L (3.5-5.1)
[2020-01-21 11:00] VITALS: BP 191/91
[2020-01-21] MEDS: LABETALOL 20 MG/4 ML DISP.SYRIN. IVP PRN (11:24)
--- NOTE | 2020-01-21 11:58 | PDOC ---
Infectious Disease Note Subjective Subjective pt is feeling better ROS ROS no n/v/d/sob Vital Sign Vital Signs Vital Signs Date Time Temp Pulse Resp B/P (MAP) Pulse Ox O2 Delivery O2 Flow Rate FiO2 01/21/20 11:24 67 191/91 01/21/20 08:00 Nasal Cannula 2.0 01/21/20 07:00 99.3 18 99 99.3 Physical Exam PHYSICAL EXAM GENERAL: Alert, oriented gentleman, not in distress. VITAL SIGNS: Stable HEENT: NAD. NECK: Supple, no JVP, no lymphadenopathy. LUNGS: Clear. HEART: S1, S2 regular. ABDOMEN: Benign. EXTREMITIES: No edema, cyanosis. SKIN: Unremarkable. NEUROLOGIC: The patient is alert, awake and appropriate. No focal neurologic deficit. Labs Lab Laboratory Tests Test 01/21/20 09:55 White Blood Count 6.2 x10^3/uL (4.0-11.0) Red Blood Count 4.26 x10^6/uL (4.30-5.70) Hemoglobin 13.7 g/dL (13.0-17.5) Hematocrit 39.1 % (39.0-53.0) Mean Corpuscular Volume 92 fL (79-100) Mean Corpuscular Hemoglobin 32 pg (25-35) Mean Corpuscular Hemoglobin Concent 35 g/dL (31-37) Red Cell Distribution Width 13.9 % (11.5-14.5) Platelet Count 278 x10^3/uL (140-400) Neutrophils (%) (Auto) 84 % (31-73) Lymphocytes (%) (Auto) 12 % (24-48) Monocytes (%) (Auto) 4 % (0-9) Eosinophils (%) (Auto) 0 % (0-3) Basophils (%) (Auto) 0 % (0-3) Neutrophils # (Auto) 5.2 x10^3/uL (1.8-7.7) Lymphocytes # (Auto) 0.7 x10^3/uL (1.0-4.8) Monocytes # (Auto) 0.2 x10^3/uL (0.0-1.1) Eosinophils # (Auto) 0.0 x10^3/uL (0.0-0.7) Basophils # (Auto) 0.0 x10^3/uL (0.0-0.2) Sodium Level 136 mmol/L (136-145) Potassium Level 3.8 mmol/L (3.5-5.1) Chloride Level 99 mmol/L (98-107) Carbon Dioxide Level 30 mmol/L (21-32) Anion Gap 7 (6-14) Blood Urea Nitrogen 16 mg/dL (8-26) Creatinine 1.0 mg/dL (0.7-1.3) Estimated GFR (Cockcroft-Gault) 79.1 Glucose Level 176 mg/dL (70-99) Calcium Level 8.1 mg/dL (8.5-10.1) Micro Microbiology 01/19/20 Blood Culture - Preliminary, Resulted NO GROWTH AFTER 1 DAY 01/19/20 Urine Culture - Final, Complete Objective Assessment IMPRESSION: 1. COVID-19 positive. 2. Hypoxemia, the patient is on 2 liters oxygen. 3. Pulmonary infiltrate. 4. Fever. 5. Hypertension. Plan Plan of Care cont Remdesivir steroids C plasma given supportive care GERMAN CHOWDARY MD Jan 21, 2020 11:58
--- NOTE | 2020-01-21 12:40 | PDOC ---
[employer] PROGRESS NOTE Date of Service DOS: DATE: 01/21/20 TIME: 12:39 Chief Complaint Chief Complaint Acute hypoxic respiratory failure due to COVID infection Admit to medicine Appreciate pulmonology recommendations Appreciate infectious disease recommendations Start IV steroids Continue IV convalescent plasma Continue IV Remdesivir day 2 out of 4 Continue current oxygen supplementation to maintain saturations greater than 92% Start high dose DVT treatment High dose Lovenox for DVT prophylaxis ADA diet Full code Discussed with RN and SW Disposition inpatient Surrogate decision maker is self History of Present Illness History of Present Illness 76-dtt[age]egk-old male with past medical history of hypertension who presents with combination of loss of appetite, nausea vomiting, fever, malaise, shortness of breath and chest pain. Overall pain is 8 out of 10. Symptoms began this past Friday and he had a COVID test on Friday and on Friday he was found out that he was COVID positive. Patient states that he was unable to fall asleep because he was afraid he would stop breathing. This is what prompted him to come to the ED at the time. Denies abdominal pain, diarrhea, dysuria, syncope, hematemesis or smoking. 01/21/2020 No acute events overnight. Patient seen and examined bedside. Patient has some headache after given IV Remdesivir. Headache improved after Tylenol given. Patient's chart, labs, images were reviewed and discussed with RN Vitals/I&O Vitals/I&O: Vital Signs Date Time Temp Pulse Resp B/P (MAP) Pulse Ox O2 Delivery O2 Flow Rate FiO2 01/21/20 11:24 67 191/91 01/21/20 08:00 Nasal Cannula 2.0 01/21/20 07:00 99.3 18 99 99.3 I & O 01/20/20 01/20/20 01/21/20 15:00 23:00 07:00 Intake Total 540 ml 932 ml 300 ml Balance 540 ml 932 ml 300 ml Physical Exam Physical Exam: GENERAL: Alert, oriented gentleman, not in distress. VITAL SIGNS: Stable HEENT: NAD. NECK: Supple, no JVP, no lymphadenopathy. LUNGS: Clear. HEART: S1, S2 regular. ABDOMEN: Benign. EXTREMITIES: No edema, cyanosis. SKIN: Unremarkable. NEUROLOGIC: The patient is alert, awake and appropriate. No focal neurologic deficit. Labs Labs: Laboratory Tests Test 01/21/20 09:55 White Blood Count 6.2 x10^3/uL (4.0-11.0) Red Blood Count 4.26 x10^6/uL (4.30-5.70) Hemoglobin 13.7 g/dL (13.0-17.5) Hematocrit 39.1 % (39.0-53.0) Mean Corpuscular Volume 92 fL (79-100) Mean Corpuscular Hemoglobin 32 pg (25-35) Mean Corpuscular Hemoglobin Concent 35 g/dL (31-37) Red Cell Distribution Width 13.9 % (11.5-14.5) Platelet Count 278 x10^3/uL (140-400) Neutrophils (%) (Auto) 84 % (31-73) Lymphocytes (%) (Auto) 12 % (24-48) Monocytes (%) (Auto) 4 % (0-9) Eosinophils (%) (Auto) 0 % (0-3) Basophils (%) (Auto) 0 % (0-3) Neutrophils # (Auto) 5.2 x10^3/uL (1.8-7.7) Lymphocytes # (Auto) 0.7 x10^3/uL (1.0-4.8) Monocytes # (Auto) 0.2 x10^3/uL (0.0-1.1) Eosinophils # (Auto) 0.0 x10^3/uL (0.0-0.7) Basophils # (Auto) 0.0 x10^3/uL (0.0-0.2) Sodium Level 136 mmol/L (136-145) Potassium Level 3.8 mmol/L (3.5-5.1) Chloride Level 99 mmol/L (98-107) Carbon Dioxide Level 30 mmol/L (21-32) Anion Gap 7 (6-14) Blood Urea Nitrogen 16 mg/dL (8-26) Creatinine 1.0 mg/dL (0.7-1.3) Estimated GFR (Cockcroft-Gault) 79.1 Glucose Level 176 mg/dL (70-99) Calcium Level 8.1 mg/dL (8.5-10.1) Assessment and Plan Assessmemt and Plan Problems Medical Problems: (1) COVID-19 Status: Acute (2) Hypoxia Status: Acute Comment Review of Relevant I have reviewed the following items sai (where applicable) has been applied. Medications: Current Medications Medications (Trade) Dose Ordered Sig/Madia Route PRN Reason Start Time Stop Time Status Last Admin Dose Admin Methylprednisolone Sodium Succinate (SOLU-Medrol 40MG VIAL) 40 mg Q8HRS IV 01/20/20 14:00 01/21/20 05:39 Thiamine HCl 100 mg/Dextrose 51 ml @ 102 mls/hr Q8HRS IV 01/20/20 14:00 01/21/20 05:39 Non-Formulary Medication 1 ea/ Sodium Chloride 250 ml @ 500 mls/hr 1X ONCE IV 01/20/20 13:00 01/20/20 13:29 DC 01/20/20 13:21 Non-Formulary Medication 1 ea/ Sodium Chloride 250 ml @ 500 mls/hr DAILY IV 01/21/20 09:00 01/24/20 09:29 01/21/20 08:50 Enoxaparin Sodium (Lovenox 40mg Syringe) 40 mg Q12HR SQ 01/20/20 13:00 01/21/20 08:27 Throat Lozenges (Cepacol Sore Throat Lozenge) 1 jak PRN Q2HRS PRN PO SORE THROAT, 1ST CHOICE 01/21/20 05:30 01/21/20 08:26 Benzonatate (Tessalon Perle) 200 mg PRN Q8HRS PRN PO COUGH 01/21/20 05:30 01/21/20 05:39 Phenol (Chloraseptic) 1 spray PRN Q2HR PRN PO SORE THROAT, 2ND CHOICE 01/21/20 05:30 01/21/20 05:39 Acetaminophen (Tylenol) 650 mg PRN Q4HRS PRN PO Fever >100.3 01/21/20 10:00 01/21/20 10:02 Justifications for Admission Other Justification LIZETH MART MD Jan 21, 2020 12:40
[2020-01-21 15:00] VITALS: BP 123/74
--- NOTE | 2020-01-21 17:15 | NUR ---
SW following. Spoke with RN and reviewed chart. Pt remains on 2l 02 and IV abx. Pt not ready for discharge per fevers. SW following.
[2020-01-21 19:45] VITALS: BP 121/68
[2020-01-21 22:34] VITALS: BP 136/76
[2020-01-22] VITALS (7 sets, daily range): BP systolic 127–170; BP diastolic 67–86
[2020-01-22] MEDS: THIAMINE INJ 100 MG in IV DEXTROSE 5% 50 ML IV SCH ×3 (06:50→23:16)
[2020-01-22] MEDS: methylPREDNISolone SOD SUCC PF 40 MG/ML VIAL. IV SCH ×3 (06:50→21:10)
--- NOTE | 2020-01-22 07:02 | PDOC ---
Infectious Disease Note Subjective Subjective pt is feeling better ROS ROS no n/v/d/ Vital Sign Vital Signs Vital Signs Date Time Temp Pulse Resp B/P (MAP) Pulse Ox O2 Delivery O2 Flow Rate FiO2 01/22/20 03:46 96.8 50 18 127/67 (87) 92 Nasal Cannula 2.0 96.8 Physical Exam PHYSICAL EXAM GENERAL: Alert, oriented gentleman, not in distress. VITAL SIGNS: Stable HEENT: NAD. NECK: Supple, no JVP, no lymphadenopathy. LUNGS: Clear. HEART: S1, S2 regular. ABDOMEN: Benign. EXTREMITIES: No edema, cyanosis. SKIN: Unremarkable. NEUROLOGIC: The patient is alert, awake and appropriate. No focal neurologic deficit. Labs Lab Laboratory Tests Test 01/21/20 09:55 White Blood Count 6.2 x10^3/uL (4.0-11.0) Red Blood Count 4.26 x10^6/uL (4.30-5.70) Hemoglobin 13.7 g/dL (13.0-17.5) Hematocrit 39.1 % (39.0-53.0) Mean Corpuscular Volume 92 fL (79-100) Mean Corpuscular Hemoglobin 32 pg (25-35) Mean Corpuscular Hemoglobin Concent 35 g/dL (31-37) Red Cell Distribution Width 13.9 % (11.5-14.5) Platelet Count 278 x10^3/uL (140-400) Neutrophils (%) (Auto) 84 % (31-73) Lymphocytes (%) (Auto) 12 % (24-48) Monocytes (%) (Auto) 4 % (0-9) Eosinophils (%) (Auto) 0 % (0-3) Basophils (%) (Auto) 0 % (0-3) Neutrophils # (Auto) 5.2 x10^3/uL (1.8-7.7) Lymphocytes # (Auto) 0.7 x10^3/uL (1.0-4.8) Monocytes # (Auto) 0.2 x10^3/uL (0.0-1.1) Eosinophils # (Auto) 0.0 x10^3/uL (0.0-0.7) Basophils # (Auto) 0.0 x10^3/uL (0.0-0.2) Sodium Level 136 mmol/L (136-145) Potassium Level 3.8 mmol/L (3.5-5.1) Chloride Level 99 mmol/L (98-107) Carbon Dioxide Level 30 mmol/L (21-32) Anion Gap 7 (6-14) Blood Urea Nitrogen 16 mg/dL (8-26) Creatinine 1.0 mg/dL (0.7-1.3) Estimated GFR (Cockcroft-Gault) 79.1 Glucose Level 176 mg/dL (70-99) Calcium Level 8.1 mg/dL (8.5-10.1) Micro Microbiology 01/19/20 Blood Culture - Preliminary, Resulted NO GROWTH AFTER 1 DAY 01/19/20 Urine Culture - Final, Complete Objective Assessment IMPRESSION: 1. COVID-19 positive. 2. Hypoxemia, the patient is on 2 liters oxygen. 3. Pulmonary infiltrate. 4. Fever. 5. Hypertension. Plan Plan of Care cont Remdesivir steroids C plasma given supportive care GERMAN CHOWDARY MD Jan 22, 2020 07:02
[2020-01-22] MEDS: LISINOPRIL 10 MG TABLET PO SCH ×2 (08:49→21:11)
[2020-01-22] MEDS: ASCORBIC ACID 500 MG TABLET PO SCH ×3 (08:49→21:10)
[2020-01-22] MEDS: ENOXAPARIN 40 MG/0.4 ML SYRINGE. SQ SCH ×2 (08:49→21:11)
[2020-01-22] MEDS: NON FORMULARY ITEM 1 EA in IV NORMAL SALINE 250ML 250 ML IV SCH (10:28)
--- NOTE | 2020-01-22 12:24 | PDOC ---
PULMONARY PROGRESS NOTES DATE: 01/22/20 TIME: 12:19 Subjective PT. resting on 2 liters N/C Repost SOB at rest and with ambulation, feeling much better today a-febrile overnight S/P convalescent plasma and remdesivir 01/20/20 Vitals Vital Signs Date Time Temp Pulse Resp B/P (MAP) Pulse Ox O2 Delivery O2 Flow Rate FiO2 01/22/20 11:52 97.1 68 18 137/72 (93) 97 Nasal Cannula 2.0 97.1 Comments PT. seen during covid- pandemic visual exam preformed RRR N/C No distress No edema No rash Labs Laboratory Tests Test 01/21/20 09:55 White Blood Count 6.2 x10^3/uL (4.0-11.0) Red Blood Count 4.26 x10^6/uL (4.30-5.70) Hemoglobin 13.7 g/dL (13.0-17.5) Hematocrit 39.1 % (39.0-53.0) Mean Corpuscular Volume 92 fL (79-100) Mean Corpuscular Hemoglobin 32 pg (25-35) Mean Corpuscular Hemoglobin Concent 35 g/dL (31-37) Red Cell Distribution Width 13.9 % (11.5-14.5) Platelet Count 278 x10^3/uL (140-400) Neutrophils (%) (Auto) 84 % (31-73) Lymphocytes (%) (Auto) 12 % (24-48) Monocytes (%) (Auto) 4 % (0-9) Eosinophils (%) (Auto) 0 % (0-3) Basophils (%) (Auto) 0 % (0-3) Neutrophils # (Auto) 5.2 x10^3/uL (1.8-7.7) Lymphocytes # (Auto) 0.7 x10^3/uL (1.0-4.8) Monocytes # (Auto) 0.2 x10^3/uL (0.0-1.1) Eosinophils # (Auto) 0.0 x10^3/uL (0.0-0.7) Basophils # (Auto) 0.0 x10^3/uL (0.0-0.2) Sodium Level 136 mmol/L (136-145) Potassium Level 3.8 mmol/L (3.5-5.1) Chloride Level 99 mmol/L (98-107) Carbon Dioxide Level 30 mmol/L (21-32) Anion Gap 7 (6-14) Blood Urea Nitrogen 16 mg/dL (8-26) Creatinine 1.0 mg/dL (0.7-1.3) Estimated GFR (Cockcroft-Gault) 79.1 Glucose Level 176 mg/dL (70-99) Calcium Level 8.1 mg/dL (8.5-10.1) Medications Active Scripts Medications Dose Route/Sig Max Daily Dose Days Date Category Lisinopril 10 Mg Tablet 1 Tab PO DAILY 01/20/20 Reported Comments CXR IMPRESSION: Low lung volumes with mild bibasilar atelectasis or infiltrate Impression . IMPRESSION: 1. Acute hypoxic respiratory failure secondary to COVID-19 pneumonia-- improving 2. Abnormal chest x-ray with patchy infiltrates consistent with COVID pneumonia. 3. Underlying morbid obesity. 4. No significant tobacco history. Plan . RECOMMENDATIONS: Slowly clinically improving 1. Continue present oxygen. Keep saturation 92% and above. 2. Continue IV steroids, will need ten day course, will transition to po tomorrow 3. ABX per ID--- not on ABX at this time 4. S/P convalescent plasma and remdesivir 01/20/20 5. High dose DVT prophylaxis. 6. Tylenol for fevers 7. Monitor clinical course 8. 6 min walk prior to D/C, patient improving possible discharge next 24 to 48 hours D/W HUMBERTO OAKES MD Jan 22, 2020 12:24
--- NOTE | 2020-01-22 13:41 | PDOC ---
[employer] [facility] PROGRESS NOTE Date of Service DOS: DATE: 01/22/20 TIME: 13:37 Chief Complaint Chief Complaint Acute hypoxic respiratory failure due to COVID infection Admit to medicine Appreciate pulmonology recommendations Appreciate infectious disease recommendations Start IV steroids Continue IV convalescent plasma Continue IV Remdesivir day 2 out of 4 Continue current oxygen supplementation to maintain saturations greater than 92% Start high dose DVT treatment High dose Lovenox for DVT prophylaxis ADA diet Full code Discussed with RN and SW Disposition inpatient Surrogate decision maker is self History of Present Illness History of Present Illness 83-zfom-[age]-old male with past medical history of hypertension who presents with combination of loss of appetite, nausea vomiting, fever, malaise, shortness of breath and chest pain. Overall pain is 8 out of 10. Symptoms began this past Friday and he had a COVID test on Friday and on Friday he was found out that he was COVID positive. Patient states that he was unable to fall asleep because he was afraid he would stop breathing. This is what prompted him to come to the ED at the time. Denies abdominal pain, diarrhea, dysuria, syncope, hematemesis or smoking. 01/21/2020 No acute events overnight. Patient seen and examined bedside. Patient has some headache after given IV Remdesivir. Headache improved after Tylenol given. Patient's chart, labs, images were reviewed and discussed with RN 01/22/2020 No acute events overnight. Patient seen and examined bedside. Patient requires 2 L nasal cannula and is saturating 92%. We will conduct 6-minute walk test before discharge. Patient is still finishing up his course of Remdesivir and convalescent plasma. Patient's chart, labs, images were reviewed and discussed with RN Vitals/I&O Vitals/I&O: Vital Signs Date Time Temp Pulse Resp B/P (MAP) Pulse Ox O2 Delivery O2 Flow Rate FiO2 01/22/20 11:52 97.1 68 18 137/72 (93) 97 Nasal Cannula 2.0 97.1 I & O 01/21/20 01/21/20 01/22/20 15:00 23:00 07:00 Intake Total 150 ml 51 ml 51 ml Balance 150 ml 51 ml 51 ml Physical Exam Physical Exam: GENERAL: Alert, oriented gentleman, not in distress. VITAL SIGNS: Stable HEENT: NAD. NECK: Supple, no JVP, no lymphadenopathy. LUNGS: Clear. HEART: S1, S2 regular. ABDOMEN: Benign. EXTREMITIES: No edema, cyanosis. SKIN: Unremarkable. NEUROLOGIC: The patient is alert, awake and appropriate. No focal neurologic deficit. Assessment and Plan Assessmemt and Plan Problems Medical Problems: (1) COVID-19 Status: Acute (2) Hypoxia Status: Acute Comment Review of Relevant I have reviewed the following items sai (where applicable) has been applied. Justifications for Admission Other Justification LIZETH MART MD Jan 22, 2020 13:41
[2020-01-22] MEDS: LABETALOL 20 MG/4 ML DISP.SYRIN. IVP PRN (14:32)
[2020-01-23 03:00] VITALS: BP 125/62
[2020-01-23] MEDS: methylPREDNISolone SOD SUCC PF 40 MG/ML VIAL. IV SCH ×2 (05:42→13:40)
[2020-01-23] MEDS: THIAMINE INJ 100 MG in IV DEXTROSE 5% 50 ML IV SCH (06:00)
[2020-01-23 07:18] VITALS: BP 144/88
[2020-01-23] MEDS ORDERED: predniSONE 20 MG TABLET PO SCH (09:00)
[2020-01-23] MEDS: NON FORMULARY ITEM 1 EA in IV NORMAL SALINE 250ML 250 ML IV SCH (09:04)
[2020-01-23] MEDS: ENOXAPARIN 40 MG/0.4 ML SYRINGE. SQ SCH (09:04)
[2020-01-23] MEDS: ASCORBIC ACID 500 MG TABLET PO SCH ×2 (09:05→13:40)
--- NOTE | 2020-01-23 09:47 | PDOC ---
Infectious Disease Note Subjective Subjective pt is feeling good ROS ROS No shortness of breath no nausea vomiting no fever Vital Sign Vital Signs Vital Signs Date Time Temp Pulse Resp B/P (MAP) Pulse Ox O2 Delivery O2 Flow Rate FiO2 01/23/20 07:18 98.5 74 20 144/88 (106) 94 Room Air 98.5 01/22/20 23:00 2.0 Physical Exam PHYSICAL EXAM GENERAL: Alert, oriented gentleman, not in distress. VITAL SIGNS: Stable HEENT: NAD. NECK: Supple, no JVP, no lymphadenopathy. LUNGS: Clear. HEART: S1, S2 regular. ABDOMEN: Benign. EXTREMITIES: No edema, cyanosis. SKIN: Unremarkable. NEUROLOGIC: The patient is alert, awake and appropriate. No focal neurologic deficit. Labs Micro Microbiology 01/19/20 Blood Culture - Preliminary, Resulted NO GROWTH AFTER 1 DAY 01/19/20 Urine Culture - Final, Complete Objective Assessment IMPRESSION: 1. COVID-19 positive. 2. Hypoxemia, the patient is on 2 liters oxygen. 3. Pulmonary infiltrate. 4. Fever. 5. Hypertension. Plan Plan of Care Okay to discharge home. Patient was instructed that he will should continue to get better but if in case it gets worse he should come back GERMAN CHOWDARY MD Jan 23, 2020 09:47
[2020-01-23 11:29] VITALS: BP 145/80
--- NOTE | 2020-01-23 12:07 | PDOC ---
PULMONARY PROGRESS NOTES DATE: 01/23/20 TIME: 12:04 Subjective Continues to clinically improve Now on room air a-febrile overnight S/P convalescent plasma and remdesivir 01/20/20 Vitals Vital Signs Date Time Temp Pulse Resp B/P (MAP) Pulse Ox O2 Delivery O2 Flow Rate FiO2 01/23/20 11:29 98.1 82 18 145/80 (101) 93 Room Air 98.1 01/22/20 23:00 2.0 Comments PT. seen during covid-19 pandemic visual exam preformed RRR Room air No distress No edema No rash Medications Active Scripts Medications Dose Route/Sig Max Daily Dose Days Date Category Lisinopril 10 Mg Tablet 1 Tab PO DAILY 01/20/20 Reported Comments CXR IMPRESSION: Low lung volumes with mild bibasilar atelectasis or infiltrate Impression . IMPRESSION: 1. Acute hypoxic respiratory failure secondary to COVID-19 pneumonia-- resolved 2. Abnormal chest x-ray with patchy infiltrates consistent with COVID pneumonia. 3. Underlying morbid obesity. 4. No significant tobacco history. Plan . RECOMMENDATIONS: Patient performed a 6-minute walk does not require oxygen, okay to discharge Prescription written for prednisone 30 mg daily for additional 7 days Continues to clinically improve S/P convalescent plasma and remdesivir 01/20/20 Instructed to return if experiences increased SOB D/W RN and HUMBERTO Guerrero MD Jan 23, 2020 12:07
[2020-01-23] MEDS ORDERED: PRED-220 PO (14:33)
[2020-01-23] MEDS ORDERED: PRED20TA PO (14:33)
[2020-01-23] MEDS ORDERED: PRED5TAB PO (14:33)
--- NOTE | 2020-01-23 14:34 | DISCH ---
DISCHARGE INSTRUCTIONS Condition on Discharge Condition on Discharge: Stable Activity After Discharge Activity Instructions for Disc: Resume previous activity, Activity as tolerated Driving Instructions after Dis: Do not drive today Weight Bearing Status after Di: As tolerated Diet after Discharge Diet after Discharge: Regular Follow-Up Follow up with: PCP within 1 week of discharge LIZETH MART MD Jan 23, 2020 14:34
--- NOTE | 2020-01-23 15:13 | NUR ---
Pt escorted out to ER entrance with belongings in tow with [employer] NA. IV out, and discharge information on covid. Self isolation from everyone else.
--- NOTE | 2020-01-24 09:52 | NUR ---
pt discharged over the weekend with no SW needs per chart review
[2020-01-25] MEDS ORDERED: predniSONE 10 MG TABLET PO SCH (09:00)
--- NOTE | 2020-01-26 20:56 | PDOC3 ---
[facility]-Discharge Summary Date of Admission: Date of Admission: Jan 19, 2020 Date of Discharge: Date of Discharge: Jan 23, 2020 Admission Diagnosis: Admitting Diagnosis: Acute hypoxic respiratory failure due to COVID infection Discharge Diagnosis: Discharge Diagnosis: Acute hypoxic respiratory failure due to COVID infection Consults: Consults: Pulmonology Infectious disease Hospital Course: Hospital Course: [id number]-old male with past medical history of hypertension who presents with combination of loss of appetite, nausea vomiting, fever, malaise, shortness of breath and chest pain. Overall pain is 8 out of 10. Symptoms began this past Friday and he had a COVID test on Friday and on Friday he was found out that he was COVID positive. Patient states that he was unable to fall asleep because he was afraid he would stop breathing. This is what prompted him to come to the ED at the time. Denies abdominal pain, diarrhea, dysuria, syncope, hematemesis or smoking. Patient was admitted for further care, O2 supplementation and continous pulse o ximetry. Evaluation was completed by pulmonology and infectious disease.. patient was treated with high dose IV steroids and started on IV plasma and remdesivir. Patient was able to be titrated off of O2 and eventually was doing well on room air. Patient will be discharged with a prednisone taper and will f/u with his PCP. The rest of his hospital course was unevntful. Disposition: Disposition/Orders: D/C to Home Activity: Activity: Resume previous activity Diet: Diet: Regular Medications: Home Meds Active Scripts Prednisone (PREDNISONE) 5 Mg Tablet, 5 MG PO DAILY for covid for 2 Days, #2 TAB Day 9-10 Prov:LIZETH MART MD 01/23/20 Prednisone (PREDNISONE ) 10 Mg Tablet, 10 MG PO DAILY for covid for 2 Days, #2 TAB Day 7-8 Prov:LIZETH MART MD 01/23/20 Prednisone (PREDNISONE) 20 Mg Tablet, 20 MG PO DAILY for covid for 2 Days, #2 TAB Day 5-6 Prov:LIZETH MART MD 01/23/20 Prednisone (PREDNISONE ) 10 Mg Tablet, 30 MG PO DAILY for covid for 2 Days, #6 TAB Day 3-4 Prov:LIZETH MART MD 01/23/20 Prednisone (PREDNISONE) 20 Mg Tablet, 40 MG PO DAILY for covid for 2 Days, #4 TAB Day 1-2 Prov:LIZETH MART MD 01/23/20 Reported Medications Lisinopril (LISINOPRIL) 10 Mg Tablet, 1 TAB PO DAILY for HTN, #30 TAB 5 Refills 01/20/20 Discontinued Reported Medications Hydrocortisone Acetate (ANUSOL-HC) 25 Mg Supp.rect, 1 SUPP RC HS, #14 SUPP 04/01/16 Docusate Sodium (STOOL SOFTENER) 100 Mg Capsule, 100 MG PO PRN PRN for CONSTIPATION 04/01/16 Multivitamin (MULTIVITAMINS) 1 Each Tablet, 1 TAB PO DAILY, #90 TAB 3 Refills 04/01/16 Scheduled Lisinopril (Lisinopril), 1 TAB PO DAILY, (Reported) Prednisone (Prednisone), 40 MG PO DAILY Prednisone (Prednisone ), 30 MG PO DAILY Prednisone (Prednisone), 20 MG PO DAILY Prednisone (Prednisone ), 10 MG PO DAILY Prednisone (Prednisone), 5 MG PO DAILY Discontinued Medications Docusate Sodium (Stool Softener), 100 MG PO PRN PRN for CONSTIPATION, (Reported) Hydrocortisone Acetate (Anusol-Hc), 1 SUPP RC HS, (Reported) Multivitamin (Multivitamins), 1 TAB PO DAILY, (Reported) Total Time: Total Time: Total time spent was 40 minutes in preparing scripts, discharge planning with SW and RN, and preparing this discharge summary. Justicifation of Admission Dx: Justifications for Admission: Justification of Admission Dx: Yes LIZETH MART MD Jan 26, 2020 20:55
[2020-01-27] MEDS ORDERED: predniSONE 20 MG TABLET PO SCH (09:00)
[2020-01-29] MEDS ORDERED: predniSONE 10 MG TABLET PO SCH (09:00)
[2020-01-31] MEDS ORDERED: predniSONE 5 MG TABLET PO SCH (09:00)
== END 2020-01-23 15:13 | disposition home or self-care (01) | DRG 177 ==
LOC: ER 12:32 → 6 SOUTH 17:58
PROVIDERS: ADMIT Family Medicine; ATTEND Family Medicine
PROC: XW13325 Transfusion of Convalescent Plasma (Nonautologous) into Peripheral Vein, Percutaneous Approach, New Technology Group 5 (ICD-10-PCS; principal; 2020-01-20)
PROC: XW033E5 Introduction of Remdesivir Anti-infective into Peripheral Vein, Percutaneous Approach, New Technology Group 5 (ICD-10-PCS; 2020-01-20)
PROC: XW033E5 Introduction of Remdesivir Anti-infective into Peripheral Vein, Percutaneous Approach, New Technology Group 5 (ICD-10-PCS; 2020-01-21)
DX: U07.1 COVID-19 (principal); J96.01 Acute respiratory failure with hypoxia; J12.89 Other viral pneumonia; J98.11 Atelectasis; Z68.41 Body mass index [BMI] 40.0-44.9, adult; E66.01 Morbid (severe) obesity due to excess calories; I10 Essential (primary) hypertension; Z79.899 Other long term (current) drug therapy
CPT/HCPCS: 36415; 36600; 71045; 80048; 80053; 81001; 82805; 83605; 83880; 84484; 85025; 86850; 86900; 86901; 86927; 87040; 87086; 93005; 94618; 96361; 96365; 96375; J0456; J1100; J1650; J2405; J2920; J3010; J3411; J3490; J7030; J7060; 99285-25; G0378; P9017